=== PATIENT | female | born 1965 | race Caucasian/White ===

== ENCOUNTER 2022-12-25 22:41 | Emergency (ER) | payer MEDICAID, OTHER ==
[~2022-12-25] VITALS: Ht 152.4 cm; Wt 84.0 kg
[2022-12-25 23:44] VITALS: BP 134/67
[2022-12-26] MEDS ORDERED: BACITRACIN ZINC OINT UDPKT TOP ONE (02:00)
[2022-12-26] MEDS ORDERED: TETANUS, DIPHTHERIA, PERTUSSIS VAC/PF 0.5ML (>10YR OLD) IM ONE (02:00)
[2022-12-26] MEDS ORDERED: LIDOCAINE HCL/PF 1% 10 MG/ML 5ML VIAL INFIL ONE (02:00)
[2022-12-26] MEDS ORDERED: BO1 TP (04:06)
== END 2022-12-26 04:00 | disposition home or self-care (01) ==
LOC: ER 22:53
DX: S61.012A Laceration without foreign body of left thumb without damage to nail, initial encounter (principal); W26.0XXA Contact with knife, initial encounter; Y93.89 Activity, other specified; Y92.89 Other specified places as the place of occurrence of the external cause; Y99.8 Other external cause status
CPT/HCPCS: 12001; 90471; 90715; 99283; J3490; Z7610